=== PATIENT | male | born 1935 | race Caucasian/White ===

== ENCOUNTER 2016-09-14 12:27 | Emergency (ER) | payer MEDICARE, OTHER ==
[~2016-09-14 12:27] MED LIST: ALEVE220 MG PO; ASAB PO; C5 PO; CO Q-10200 MG PO; COREG12 PO; FLOMAX4 PO; HYZAAR1 TAB PO; MOBIC15 MG PO; PROSCAR5 PO; RED YEAS1 OR
== END 2016-09-14 14:05 | disposition home or self-care (01) ==
LOC: ER 12:27
DX: M54.2 Cervicalgia (principal); I10 Essential (primary) hypertension; Z95.0 Presence of cardiac pacemaker; Z88.8 Allergy status to other drugs, medicaments and biological substances; Z79.82 Long term (current) use of aspirin; Z79.01 Long term (current) use of anticoagulants; Z79.899 Other long term (current) drug therapy; W19.XXXA Unspecified fall, initial encounter
CPT/HCPCS: 70450; 72125; 99284